=== PATIENT | male | born 1960 | race African-American/Black ===

== ENCOUNTER 2018-09-12 17:46 | Emergency (ER) | payer OTHER ==
--- NOTE | 2018-09-12 17:51 | PDOC ---
Rapid Medical Evaluation Time Seen by Provider: 09/12/18 17:49 Medical Evaluation: 09/12/18 17:49 I have performed a brief in-person evaluation of this patient. The patient presents with a chief complaint of: throbbing epigastric pain since this AM Pertinent physical exam findings: epigastric tenderness I have ordered the following: abd w/u The patient will proceed to the ED for further evaluation. Discharge Disposition - Diagnosis Epigastric abdominal pain - Referrals - Patient Instructions - Post Discharge Activity
[2018-09-12] MEDS ORDERED: SODIUM CHLORIDE 1,000 ML IV STA (17:52)
[2018-09-12] MEDS ORDERED: MAG HYDROX/AL HYDROX/SIMETH 30 ML UNIT-DOSE CUP PO ONE (17:52)
[2018-09-12 17:54] VITALS: TEMP 99.3; BMI 25.8
[2018-09-12] MEDS ORDERED: ACETAMINOPHEN 1000 MG/100 ML VIAL (NON FORMULARY) IVPB ONE (18:22)
[2018-09-12] MEDS ORDERED: FAMOTIDINE 20 MG/50 ML IVPB 20 MG/50 ML MG IVPB ONE ×2 (18:22→18:43)
[2018-09-12] MEDS ORDERED: LIDOCAINE VISCOUS 2% ORAL/TOP 20 ML UNIT-DOSE CUP MM ONE (18:22)
--- NOTE | 2018-09-12 18:28 | PDOC ---
History of Present Illness - General Chief Complaint: Chest Pain Stated Complaint: ABD PAIN Time Seen by Provider: 09/12/18 17:49 - History of Present Illness Initial Comments: The pt is a 57M w/ a history of GERD who presents for evaluation of 1 day of epigastric abdominal pain. The pain is burning/sharp, radiates to his chest, is associated with NBNB emesis x1, and NB diarrhea x1, tried taking Nexium earlier today w/ minimal relief. He denies having pain like this before. Denies recent illness, fevers/chills, PIZANO, vision changes, trouble breathing, dysuria, hematuria, or blood in his stool. PMH: Denies PSH: Denies Allergies: Denies Meds: Nexium PRN PCP: Dr. Adams 09/12/18 18:22 Past History - Past Medical History Allergies/Adverse Reactions: Allergies Allergy/AdvReac Type Severity Reaction Status Date / Time No Known Allergies Allergy Verified 09/12/18 17:51 Home Medications: Ambulatory Orders NK [No Known Home Medication] 09/12/18 COPD: No - Immunization History Immunization Up to Date: Yes - Suicide/Smoking/Psychosocial Hx Smoking History: Never smoked Hx Alcohol Use: No Drug/Substance Use Hx: No Review of Systems - Review of Systems Able to Perform ROS?: Yes Comments:: GENERAL/CONSTITUTIONAL: No fever or chills. No weakness HEAD, EYES, EARS, NOSE AND THROAT: No change in vision. No ear pain or discharge. No sore throat CARDIOVASCULAR: No chest pain or shortness of breath RESPIRATORY: Denies cough, hemoptysis GENITOURINARY: No dysuria, frequency, or change in urination MUSCULOSKELETAL: No joint or muscle swelling or pain. No neck or back pain SKIN: No rash NEUROLOGIC: No headache, vertigo, loss of consciousness, or change in strength/ sensation ENDOCRINE: No increased thirst. No abnormal weight change HEMATOLOGIC/LYMPHATIC: No anemia, easy bleeding, or history of blood clots ALLERGIC/IMMUNOLOGIC: No hives or skin allergy 09/12/18 18:27 Is the patient limited Israeli proficient: No *Physical Exam - Vital Signs Last Vital Signs Temp Pulse Resp BP Pulse Ox 99.3 F 104 H 18 121/76 99 09/12/18 17:51 09/12/18 17:51 09/12/18 17:51 09/12/18 17:51 09/12/18 17:51 - Physical Exam Comments: GENERAL: Awake, alert, and oriented to person/place/time, in no acute distress HEAD: No signs of trauma, normocephalic, atraumatic EYES: PERRLA, EOMI, sclera anicteric, conjunctiva clear ENT: Hearing grossly normal, nares patent, oropharynx clear without exudates. No uvular deviation. Moist mucosa LUNGS: No distress, speaks in full sentences, clear to auscultation bilaterally HEART: Regular rate and rhythm, normal S1 and S2, no murmurs appreciated, peripheral pulses normal and equal bilaterally ABDOMEN: Soft, epigastric/LUQ TTP w/o rebound or guarding, normoactive bowel sounds EXTREMITIES: Normal inspection, Normal range of motion, no edema. No clubbing or cyanosis NEUROLOGICAL: Cranial nerves II through XII grossly intact. Normal speech, normal gait, no focal sensorimotor deficits SKIN: Warm, Dry 09/12/18 18:27 ED Treatment Course - LABORATORY CBC & Chemistry Diagram: 09/12/18 18:38 09/12/18 18:38 Medical Decision Making - Medical Decision Making The pt is a 57M w/ a history of GERD who presents for evaluation of 1 day of epigastric abdominal pain w/ associated vomiting and diarrhea ED Course CMP, CBC, Cardiac profile, Lipase ECG IVF, Pepcid, Ofirmev, Maalox, Viscous lido 09/12/18 18:28 Mild anemia, no indication to transfuse at this time Lytes unremarkable No JULIÁN LFTs unremarkable Lipase wnl Trop I neg 09/12/18 19:55 Pt feels much improved Will PO challenge If pt tolerates PO, plan for D/C w/ PCP f/u Will provide discharge instructions and return precautions Dispo: home 09/12/18 20:04 *DC/Admit/Observation/Transfer Diagnosis at time of Disposition: Epigastric abdominal pain Nausea and vomiting Qualifiers: Vomiting type: unspecified Vomiting Intractability: non-intractable Qualified Code(s): R11.2 - Nausea with vomiting, unspecified - Discharge Dispostion Disposition: HOME Condition at time of disposition: Improved Decision to Admit order: No - Referrals Referrals: ON STAFF,NOT [Primary Care Provider] - Dr. Bryan [Other] Kosta Murdock MD [Staff Physician] - - Patient Instructions Printed Discharge Instructions: DI for Abdominal Pain-Adult Additional Instructions: You were seen in the Emergency Department for evaluation of abdominal pain with vomiting and diarrhea. You were treated with fluids, Zofran, Pepcid, Maalox, and viscous lidocaine. Your labs were unremarkable. Review the handout provided at discharge. Follow up with your primary care provider and a gastroenterology referral was provided as well. Return to the Emergency Department if you develop fevers/chills, chest pain, trouble breathing, worsening symptoms, inability to tolerate food, or any new/concerning symptoms. Of note, your creatinine was 1.5 today and should be discussed with your primary care provider at your next visit. If you notice decreased urine output, blood in your urine, swelling in your hands/feet, please return to the Emergency Department. - Post Discharge Activity
[2018-09-12] MEDS ORDERED: LIDOCAINE VISCOUS 2% ORAL/TOP 20 ML UNIT-DOSE CUP ONE (18:43)
[2018-09-12] MEDS ORDERED: MAG HYDROX/AL HYDROX/SIMETH 30 ML UNIT-DOSE CUP ONE (18:43)
[2018-09-12] MEDS ORDERED: ACETAMINOPHEN INJECTION 100 ML IVPB ONE (18:43)
[2018-09-12 19:10] LABS: BASO % 0.6 % (0-2.0); HEMOGLOBIN 10.9 GM/dL (11.7-16.9); LYMPH % 8.3 % (8-40); MCH 24.6 pg (25.7-33.7); MEAN CELL VOLUME 79.2 fl (80-96); MONO % 1.9 % (3.8-10.2); NEUT % 89.2 % (42.8-82.8); PLATELET COUNT 427 K/MM3 (134-434); RBC 4.42 M/mm3 (4.00-5.60); RDW 17.3 % (11.9-15.9); WHITE BLOOD COUNT 10.8 K/mm3 (4.0-10.0)
[2018-09-12 19:28] LABS: ALBUMIN 4.2 g/dl (3.4-5.0); ALK PHOS 68 U/L (45-117); ANION GAP 5 MMOL/L (8-16); BILIRUBIN,TOTAL 0.4 mg/dL (0.2-1); BLOOD UREA NITROGEN 16.1 mg/dL (7-18); CALCIUM 9.4 mg/dL (8.5-10.1); CHLORIDE 104 mmol/L (98-107); CO2 31 mmol/L (21-32); CREATININE 1.5 mg/dL (0.55-1.3); GLUCOSE,RANDOM 125 mg/dL (74-106); LIPASE 131 U/L (73-393); POTASSIUM 4.1 mmol/L (3.5-5.1); SGOT/AST 17 U/L (15-37); SGPT/ALT 47 U/L (13-61); SODIUM 140 mmol/L (136-145)
[2018-09-12 20:10] VITALS: BP 126/76; PULSE 56
--- NOTE | 2018-09-12 20:19 | PDOC ---
Documentation entered by Dakota Bertrand SCRIBE, acting as scribe for Rosendo Amaya MD. Rosendo Amaya MD: This documentation has been prepared by the Elza suarez Elijah, SCRIBE, under my direction and personally reviewed by me in its entirety. I confirm that the documentation accurately reflects all work, treatment, procedures, and medical decision making performed by me. Attending Attestation - Resident Resident Name: Rory Mcknight - ED Attending Attestation I have performed the following: I have examined & evaluated the patient, The case was reviewed & discussed with the resident, I agree w/resident's findings & plan - HPI HPI: 09/12/18 19:10 The patient is a 57 year old male, with a significant PMH of GERD who presents to the emergency department with epigastric pain lasting for x1 day. The patient reports that the pain is sharp and radiates to his chest. The patient also reports one episode of NBNB vomiting and one episode of diarrhea. The patient took Nexium this morning, but when the pain returned it prompted his visit to the ED. Patient reports similar pain in the past but only rated the pain as 3or4/10 as opposed to this morning where the pain was 9/10. The patient currently rates his pain as 2/10. Denies Shortness of breath, fever, chills, headache, dizziness, vision changes, and recent illness Allergies: DARELL PCP: Dr. Adams - Physicial Exam PE: 09/12/18 20:13 GENERAL: The patient is awake, alert, and fully oriented, Nontoxic - in no acute distress. HEAD: Normocephalic, atraumatic. EYES: extraocular movements intact, sclera anicteric, conjunctiva clear. ENT: Normal voice, Moist mucous membranes. NECK: Normal range of motion, supple without lymphadenopathy, JVD, or masses. LUNGS: Breath sounds equal, clear to auscultation bilaterally. No wheezes, no crackles, no rales. HEART: Regular rate and rhythm, normal S1 and S2 without murmur, rub or gallop. ABDOMEN: Soft, nontender, normoactive bowel sounds. No guarding, no rebound. No masses. EXTREMITIES: Normal range of motion, no edema. No clubbing or cyanosis. No cords, erythema, or tenderness. NEUROLOGICAL: No facial asymmetry, Normal speech. PSYCH: Normal mood, normal affect. SKIN: Warm, Dry, normal turgor, no rashes or lesions noted. - Medical Decision Making 09/12/18 20:00 57y M hx of acid reflux presents with 1 day of burning / sharp epgiastric pain associated nbnb vomiting x 1 and 1 episode of nb loose stool. Endorses similar episodes of thi asim in the past. Denie sany fever/chills, bpr, melena. no exertional symptoms , pham, diaphoresis on exam pt well apperain gin no distress suspect acid reflux low suspicion for acs - will obtain screening ekg 09/12/18 20:35 labs reviewed noted for cr of 1.5 - will have pt fu with PMD for this trop neg pt feeling improved abd sof tnontender will dc with supportive care and GI/PMD fu Heart Score/ECG Review - ECG Impressions Comment:: 09/12/18 20:32 Twelve-lead EKG was performed and reviewed by me. There is normal sinus rhythm with a normal rate. rate of 86 The axis is normal. The intervals are normal. There is normal R wave progression There are no ST or T wave abnormalities.
--- NOTE | 2018-09-13 10:35 | EKG ---
Test Reason : Blood Pressure : / mmHG Vent. Rate : 086 BPM Atrial Rate : 086 BPM P-R Int : 176 ms QRS Dur : 098 ms QT Int : 356 ms P-R-T Axes : 065 -07 047 degrees QTc Int : 426 ms NORMAL SINUS RHYTHM POSSIBLE LEFT ATRIAL ENLARGEMENT BORDERLINE ECG NO PREVIOUS ECGS AVAILABLE Confirmed by Gabino Marquez MD ([id number]) on 09/13/2018 10:35:09 AM Referred By: Confirmed By:Gabino Marquez MD
== END 2018-09-12 21:40 | disposition home or self-care (01) ==
LOC: JER 17:46
PROC: 3E0337Z Introduction of Electrolytic and Water Balance Substance into Peripheral Vein, Percutaneous Approach (ICD-10-PCS; principal; 2018-09-12)
PROC: 3E033GC Introduction of Other Therapeutic Substance into Peripheral Vein, Percutaneous Approach (ICD-10-PCS; 2018-09-12)
PROC: 3E033NZ Introduction of Analgesics, Hypnotics, Sedatives into Peripheral Vein, Percutaneous Approach (ICD-10-PCS; 2018-09-12)
DX: R10.13 Epigastric pain (principal); R11.2 Nausea with vomiting, unspecified; R19.7 Diarrhea, unspecified
CPT/HCPCS: 36415; 80053; 82550; 82553; 83690; 84484; 85025; 93005; 93010; 99281-25; J0131; J7030